=== PATIENT | female | born 1995 | race African-American/Black ===

== ENCOUNTER 2021-10-11 22:43 | Emergency (ER) | payer BC ==
[~2021-10-11] VITALS: Ht 162.6 cm; Wt 52.2 kg
[2021-10-11] MEDS ORDERED: EPIN0.3P3 IM (23:12)
[2021-10-12 00:11] VITALS: BP 112/70
== END 2021-10-12 00:12 | disposition home or self-care (01) ==
LOC: ER 22:50
DX: T78.1XXA Other adverse food reactions, not elsewhere classified, initial encounter (principal); Z88.0 Allergy status to penicillin; Z91.010 Allergy to peanuts; Z79.899 Other long term (current) drug therapy; X58.XXXA Exposure to other specified factors, initial encounter